=== PATIENT | male | born 1995 | race Caucasian/White ===

== ENCOUNTER 2021-08-24 10:20 | Emergency (ER) | payer BC ==
[~2021-08-24] VITALS: Ht 162.6 cm; Wt 65.2 kg
[2021-08-24 10:26] VITALS: BP 124/67
--- NOTE | 2021-08-24 10:41 | PHYS DOC ---
Past History Past Medical History: No Pertinent History (BRYSON DEL CASTILLO APRN) Past Surgical History: No Surgical History (BRYSON DEL CASTILLO APRN) Smoking: Non-smoker Alcohol Use: None Drug Use: None (BRYSON DEL CASTILLO APRN) General Adult EDM: Chief Complaint: UPPER EXTREMITY INJURY HPI: HPI: 26-year-old male patient presents today with right hand pain. Patient states 45 minutes ago he punched a door and had immediate pain in the right hand over the fifth metacarpal. Patient states he is right-handed. (BRYSON DEL CASTILLO APRN) Review of Systems: Review of Systems: Patient only complains of pain in right hand over fifth finger. Patient denies pain or any other concerns elsewhere (BRYSON DEL CASTILLO APRN) Physical Exam: PE: Constitutional: Well developed, well nourished, no acute distress, non-toxic appearance. [] HENT: Normocephalic, atraumatic, bilateral external ears normal, oropharynx moist, no oral exudates, nose normal. [] Eyes: PERRLA, EOMI, conjunctiva normal, no discharge. [] Neck: Normal range of motion, no tenderness, supple, no stridor. [] Cardiovascular:Heart rate regular rhythm, no murmur [] Lungs & Thorax: Bilateral breath sounds clear to auscultation [] Abdomen: Bowel sounds normal, soft, no tenderness, no masses, no pulsatile masses. [] Skin: Warm, dry, no rash. [] Back: No tenderness. Extremities: Swelling noted over fifth metacarpal right hand, range of motion limited due to pain, 2+ cap refill refill distal Neurologic: Alert and oriented X 3, normal motor function, normal sensory function, no focal deficits noted. [] Psychologic: Affect normal, judgement normal, mood normal. [] (BRYSON DEL CASTILLO APRN) EKG: EKG: [] (BRYSON DEL CASTILLO APRN) Radiology/Procedures: Radiology/Procedures: [PROCEDURE: HAND RIGHT 3V Study: XR HAND_RIGHT 3 VIEWS Indication: Pain and swelling. Trauma. Comparison: None. Findings: Acute dorsally angulated fracture centered at the neck of the fifth metacarpal but with fracture extension to the mid shaft. Slight ulnar angulation across the fracture site as well. No intra-articular extension into the MCP joint. No acute fracture identified elsewhere. The articular surfaces are congruent. No retained radiopaque foreign body. Impression: Mildly comminuted acute fifth metacarpal fracture which is centered at the metacarpal neck where there is dorsal/ulnar apex angulation. Nondisplaced fracture extension to the mid aspect of the shaft. Electronically signed by: NIDHI DIOR MD (08/24/2021 10:56 AM) [facility] ] (BRYSON DEL CASTILLO APRN) Heart Score: C/O Chest Pain: N/A Risk Factors: Risk Factors: DM, Current or recent (<one month) smoker, HTN, HLP, family history of CAD, obesity. Risk Scores: Score 0 - 3: 2.5% MACE over next 6 weeks - Discharge Home Score 4 - 6: 20.3% MACE over next 6 weeks - Admit for Clinical Observation Score 7 - 10: 72.7% MACE over next 6 weeks - Early Invasive Strategies (BRYSON DEL CASTILLO APRN) Course & Med Decision Making: Course & Med Decision Making Pertinent Labs and Imaging studies reviewed. (See chart for details) Patient here today for evaluation of right hand pain after punching a door will x-ray right hand. Per radiology report fracture noted. Ulnar gutter splint ordered and placed by staff. Patient instructed to follow-up with orthopedics within the next 5 to 7 days also instructed to ice and elevate for pain and swelling. Patient instructed to take Tylenol and/or ibuprofen as labeled directed for pain. Patient verbalized understanding of discharge instructions. [] (BRYSON DEL CASTILLO APRN) Dragon Disclaimer: Dragon Disclaimer: This electronic medical record was generated, in whole or in part, using a voice recognition dictation system. (BRYSON DEL CASTILLO APRN) Attending Co-Sign The patient was seen and interviewed as well as examined at the bedside. The chart was reviewed. The case was discussed. Agree with the plan of care. (JERRELL MCCARTHY DO) Departure Departure: Impression: Primary Impression: Shantas metacarpal fracture, neck, closed Qualified Codes: S62.339A - Displaced fracture of neck of unspecified metacarpal bone, initial encounter for closed fracture Disposition: HOME / SELF CARE / HOMELESS Condition: STABLE Referrals: PCP,ALEX (PCP) LON AGUIRRE MD Patient Instructions: Cast or Splint Care, [id number], Hand Fracture, Fifth Metacarpal Additional Instructions: Keep splint clean and dry. Follow-up with orthopedics in 5 to 7 days for casting. Ice 20 minutes on 3-4 times daily over the next 72 hours. Tylenol and ibuprofen as labeled directed for pain. BRYSON DEL CASTILLO APRN Aug 24, 2021 10:41 JERRELL MCCARTHY DO Aug 25, 2021 07:01
--- NOTE | 2021-08-24 10:58 | RAD ---
Study: XR HAND_RIGHT 3 VIEWS Indication: Pain and swelling. Trauma. Comparison: None. Findings: Acute dorsally angulated fracture centered at the neck of the fifth metacarpal but with fracture exte nsion to the mid shaft. Slight ulnar angulation across the fracture site as well. No intra-articular extension into the MCP joint. No acute fracture identified elsewhere. The articular surfaces are ike ruent. No retained radiopaque foreign body. Impression: Mildly comminuted acute fifth metacarpal fracture which is centered at the metacarpal neck where ther e is dorsal/ulnar apex angulation. Nondisplaced fracture extension to the mid aspect of the shaft. Electronically signed by: NIDHI DIOR MD (08/24/2021 10:56 AM) [facility]
== END 2021-08-24 11:15 | disposition home or self-care (01) ==
LOC: ER 10:20
DX: S62.336A Displaced fracture of neck of fifth metacarpal bone, right hand, initial encounter for closed fracture (principal); W22.8XXA Striking against or struck by other objects, initial encounter; Y93.89 Activity, other specified; Y92.89 Other specified places as the place of occurrence of the external cause; Y99.8 Other external cause status
CPT/HCPCS: 29125; 73130; 99283

== ENCOUNTER → 2021-09-26 | Outpatient (CLI) | payer BC ==
--- NOTE | 2021-09-26 13:12 | RAD ---
EXAM: XR HAND_RIGHT 3 VIEWS 09/26/2021 8:36 AM CLINICAL INDICATION: Fifth metacarpal fracture COMPARISON: Right hand radiograph 08/24/2021 TECHNIQUE: PA, oblique, and lateral views of the right hand FINDINGS: There is a healing angulated fifth metacarpal neck fracture, unchanged in alignment. There is increased callus formation about the fracture. No new abnormality. IMPRESSION: Healing fifth metacarpal neck fracture, unchanged in alignment. Electronically signed by: Patti Topete MD (09/26/2021 1:10 PM) [id number]
== END ==
LOC: RAD 08:30
PROVIDERS: ATTEND Physician Assistant
DX: S62.336D Displaced fracture of neck of fifth metacarpal bone, right hand, subsequent encounter for fracture with routine healing (principal); L84 Corns and callosities; X58.XXXD Exposure to other specified factors, subsequent encounter
CPT/HCPCS: 73130